=== PATIENT | female | born 1965 | race Caucasian/White ===

== ENCOUNTER 2022-01-10 17:59 | Emergency (ER) | payer OTHER, SELFPAY ==
[2022-01-10 18:05] VITALS: BP 147/91
[2022-01-10 18:12] VITALS: BP 147/91; PULSE 74; TEMP 36.4; O2SAT 98; BMI 33.7
--- NOTE | 2022-01-10 18:23 | ED_ITS ---
HPI - General Adult General Time Seen by Provider: 18:23 Date Seen: 01/10/22 Chief complaint: Chest Pain Stated complaint: Chest Pressure Time Seen by Provider: 01/10/22 18:22 Source: patient and RN notes reviewed Mode of arrival: ambulatory Limitations: no limitations History of Present Illness HPI narrative: Patient is a 56-year-old female coming in accompanied by her with concern of chest tightness. She states that she has had some chest heaviness/tightness for about a week now. She is also been having spells of fast heart rate that are last seen minutes waking her up at night. She has not been evaluated for this. She did have COVID on December 21, states she really had mild symptoms, minimal respiratory symptoms. She has felt these fast heart rate spells before the COVID, has probably been going on for few months. No current fevers chills. Some shortness of breath at times. No abdominal symptoms. She does note that she has elevated cholesterol, not treated, no prior cardiac history however. She drinks 1 coffee an about 1 tea a day, no other caffeine sources. Very minimal alcohol. These tachycardic spells will actually awaken her from sleep. She has some mild snoring at times if sleeping on her back. Her dad had a heart attack sometime in his 50s, there are other relatives on his side of the family with heart disease. She states she is active and can walk without difficulty. Related Data Home Medications Medication Instructions Recorded Confirmed valacyclovir 500 mg tablet mg 01/10/22 zolpidem 5 mg tablet mg 01/10/22 Allergies Allergy/AdvReac Type Severity Reaction Status Date / Time erythromycin base Allergy Unknown Verified 01/10/22 18:17 Review of Systems Status of ROS: Reports: 10 or more systems reviewed and unremarkable except as noted in History and below PFSH PFSH Social History Smoking Status: Never smoker Do you use any of these nicotine containing products: None Second hand tobacco smoke exposure: No How often do you have a drink containing alcohol: 2-3 times a week How many standard drinks containing alcohol do you have on a typical day: 1 or 2 How often do you have six or more drinks on one occasion: Never AUDIT-C Alcohol total score: 3 Non-prescribed substance use: denies use Exam Narrative: Exam Narrative: Well in the room with patient, cardiac monitoring is reviewed and watched is only showing sinus rhythm. Const: Vital Signs, click to edit/add: Vital Signs - 24 hr 01/10/22 18:12 01/10/22 18:05 01/10/22 19:00 Temperature 97.5 F L Pulse Rate [Left P ulse Oximeter] 74 78 Respiratory Rate 13 Blood Pressure [Ri ght Upper Arm] 147/91 H 147/91 H 131/87 Pulse Oximetry 98 97 Oxygen Delivery Me thod Room Air Room Air 01/10/22 19:40 Temperature Pulse Rate [Left P ulse Oximeter] 73 Respiratory Rate 16 Blood Pressure [Ri ght Upper Arm] 128/84 Pulse Oximetry 98 Oxygen Delivery Me thod Room Air Documenting provider has reviewed patient's vital signs: yes Common normals: no apparent distress, oriented x3, no limitations, healthy appearing, alert and well nourished General appearance: cooperative, comfortable and well kempt Nutritional appearance: overweight HENMT: Common normals: normocephalic, head/scalp atraumatic, hearing grossly n ormal bilaterally, external nose normal, nasal mucous membranes and turbinates normal, moist oral mucous membranes, oropharynx normal, dentition normal and gingiva normal Head and scalp: normocephalic and atraumatic Nose: external nose normal and nasal mucous membranes and turbinates normal Eye: Common normals: PERRL, EOMs intact bilaterally, conjunctivae normal and no scleral icterus Conjunctiva: conjunctiva(e) normal Pupil: PERRL Neck & C-Spine: Common normals: full ROM, no lymphadenopathy, supple, no meningeal signs, no JVD and thyroid normal Thyroid: thyroid normal Lymph: Lymphatic: no lymphadenopathy noted Chest: Common normals: inspection of chest normal and palpation of chest normal Resp: Common normals: normal respiratory effort, no retractions, no use of accessory muscles and clear to auscultation bilaterally Auscultation: clear to auscultation bilaterally Cardio: Common normals: no JVD, regular rate, regular rhythm, S1 normal heart sound, S2 normal heart sound, no gallops, no clicks, no murmurs and no rub Rate: regular rate Rhythm: regular rhythm Heart sounds: S1 normal and S2 normal GI: Common normals: Normal to inspection, nondistended, normoactive bowel sounds present, soft to palpation, non-tender, no hepatosplenomegaly and no masses Palpation: soft and no hepatosplenomegaly Extremity: Common normals: normal to inspection, full ROM, normal capillary refill, no joint enlargement, no clubbing, cyanosis or edema, no calf tenderness and no pedal edema Neuro: Common normals: oriented x3, CN's II-XII intact bilaterally, moves all extremities, no focal motor deficits, no sensory deficits noted and gait normal Sensorium/orientation: alert Meningeal signs: no meningeal signs Speech: speech normal Psych: Appearance: well kempt Course Course Hospital Course: Her initial EKG has been done and is normal, will have her on cardiac monitoring and pulse oximetry. Given the duration and constancy of her symptoms, single troponin will only be necessary. Will do other appropriate labs including a D- dimer. I have reviewed the rationale behind a D-dimer. If this is elevated she understands she will need chest CT PE protocol to rule out pulmonary emboli. Otherwise we will start with a baseline portable chest x-ray. She certainly sounds as if she is having tachycardic spells, they understand if we do not capture them here that she certainly will need to have further outpatient workup including event monitor/echo. Consideration for sleep apnea should be discussed with her primary as well. Right now she is hemodynamically stable, in sinus rhythm. She will be monitored while here and we will see if we have anything to add her her evaluation tonight. Reevaluation(s) Reevaluation #1: Reviewed with patient and her the normal findings of the labs and her chest x-ray. Her thyroid is pending and should there be any abnormality with that we will contact her. I will not contact her with normal findings. She is fine with that plan. I am not going to make her wait another hour for this result. She understands she does need to follow up in clinic. Should she have prolonged tachycardia at home that is going beyond a few minutes, she certainly is advised to try to come to the ER to capture this arrhythmia. Right now she is stable to discharge to home for further outpatient evaluation. Time: 20:01 Vital Signs Vital signs: Initial Vital Signs Blood Pressure 147/91 H 01/10/22 18:05 Blood Pressure Mean 109 01/10/22 18:05 Blood Pressure Position Supine 01/10/22 18:05 Vital Signs Blood Pressure 147/91 H 01/10/22 18:05 Temperature 97.5 F L 01/10/22 18:12 Pulse Rate 73 01/10/22 19:40 Respiratory Rate 16 01/10/22 19:40 Blood Pressure 128/84 01/10/22 19:40 Pulse Oximetry 98 01/10/22 19:40 Oxygen Delivery Method 01/10/22 19:40 Medical Decision Making Lab Data Lab results reviewed: Yes I reviewed the patient's lab results Labs: Lab Results 01/10/22 01/10/22 01/10/22 Range/Units 18:25 18:25 18:25 WBC 5.99 (4.50-11.00) K/uL RBC 4.58 (4.00-5.20) m/uL Hgb 13.0 (12.0-16.0) gm/dL Hct 39.3 (33.0-51.0) % MCV 86 (80-100) fL MCH 28 (26-34) pg MCHC 33 (32-36) gm/dL RDW Coeff of Sukhwinder 13.1 (11.5-15.5) % Plt Count 270 (140-440) K/uL Neut % (Auto) 61.7 (42.0-72.0) % Lymph % (Auto) 28.9 (20-44) % [place] % (Auto) 7.5 (0.0-11.0) % Eos % (Auto) 1.5 (0.0-7.0) % Baso % (Auto) 0.2 (0.0-3.0) % Neut # (Auto) 3.70 (1.7-7.0) K/uL Lymph # (Auto) 1.73 (0.90-2.90) K/uL [place] # (Auto) 0.40 (0.00-0.90) K/UL Eos # (Auto) 0.09 (0.00-0.50) K/uL Baso # (Auto) 0.01 (0.00-0.30) K/uL Abs Immat Gran (auto) 0.01 (0.00-0.30) K/uL ESR 13 (2-20) mm/hr D-Dimer Quant (PE/DVT) 0.35 (0.00-0.50) ug/ml Sodium (135-149) mmol/L Potassium (3.6-5.1) mmol/L Chloride (96-114) mmol/L Carbon Dioxide (20-32) mmol/L BUN (7-30) mg/dL Creatinine (0.5-1.5) mg/dL Estimated Creat Clear Estimated GFR ml/min Glucose (60-115) mg/dL Calcium (8.4-10.6) mg/dL Magnesium (1.5-2.6) mg/dL Total Bilirubin (0.1-1.5) mg/dL AST (12-35) U/L ALT (4-35) U/L Alkaline Phosphatase (40-150) U/L C-Reactive Protein (0.5-1.0) mg/dL NT-Pro-B Natriuret Pep (0-125) PG/mL Total Protein (6.0-8.3) g/dL Albumin (3.3-5.0) g/dL TSH (0.270-4.200) uIU/mL POC Troponin I (0.01-0.04) ng/ml 01/10/22 01/10/22 01/10/22 Range/Units 18:25 18:25 18:25 WBC (4.50-11.00) K/uL RBC (4.00-5.20) m/uL Hgb (12.0-16.0) gm/dL Hct (33.0-51.0) % MCV (80-100) fL MCH (26-34) pg MCHC (32-36) gm/dL RDW Coeff of Sukhwinder (11.5-15.5) % Plt Count (140-440) K/uL Neut % (Auto) (42.0-72.0) % Lymph % (Auto) (20-44) % [place] % (Auto) (0.0-11.0) % Eos % (Auto) (0.0-7.0) % Baso % (Auto) (0.0-3.0) % Neut # (Auto) (1.7-7.0) K/uL Lymph # (Auto) (0.90-2.90) K/uL [place] # (Auto) (0.00-0.90) K/UL Eos # (Auto) (0.00-0.50) K/uL Baso # (Auto) (0.00-0.30) K/uL Abs Immat Gran (auto) (0.00-0.30) K/uL ESR (2-20) mm/hr D-Dimer Quant (PE/DVT) (0.00-0.50) ug/ml Sodium 140 (135-149) mmol/L Potassium 3.8 (3.6-5.1) mmol/L Chloride 103 (96-114) mmol/L Carbon Dioxide 28 (20-32) mmol/L BUN 13 (7-30) mg/dL Creatinine 0.7 (0.5-1.5) mg/dL Estimated Creat Clear 75.12 Estimated GFR 102 ml/min Glucose 138 H (60-115) mg/dL Calcium 9.4 (8.4-10.6) mg/dL Magnesium 2.1 (1.5-2.6) mg/dL Total Bilirubin 0.4 (0.1-1.5) mg/dL AST 28 (12-35) U/L ALT 28 (4-35) U/L Alkaline Phosphatase 126 (40-150) U/L C-Reactive Protein 0.8 (0.5-1.0) mg/dL NT-Pro-B Natriuret Pep 46 (0-125) PG/mL Total Protein 7.5 (6.0-8.3) g/dL Albumin 4.5 (3.3-5.0) g/dL TSH 2.640 (0.270-4.200) uIU/mL POC Troponin I 0.00 L (0.01-0.04) ng/ml Imaging Data Chest x-ray: Attestation: I have reviewed the pertinent imaging results. My impression: My preliminary review of her portable chest x-ray is without acute cardiopulmonary change, await Radiology over-read. Radiologist's impression: Patient: GODFREY MIBUS Facility:?[facility] Patient ID:?[id number] Site Patient ID:?[id number]. Site :?[id number] Study:?XRay Chest PORTABLE-01/10/2022 7:02:42 PM Ordering Physician:?Hawa Alexander Final Report: INDICATION: Chest pain. TECHNIQUE: Chest 1 view. COMPARISON: None. FINDINGS: Cardiovascular and mediastinum: Heart size and vasculature are normal in caliber and appearance. Lungs and pleural spaces: Lungs are clear. No sign of infiltrate or mass. No sign of pleural effusion. No pneumothorax. Bones and soft tissues: No significant findings. IMPRESSION: Unremarkable chest. Dictated by Dada Wu MD @ 01/10/2022 7:26:49 PM (Electronic Signature) ECG Data Attestation: I personally reviewed and interpreted this ECG as follows: (Sinus rhythm, 74 beats per minute, no arrhythmia, no ischemia, QT corrected normal at 439 milliseconds) Prior ECG tracings: not available for review Critical Care Time Critical Care Time Critical Care Time: No Discharge Plan Discharge Clinical Impression: Tachycardia, Chest pressure Condition: Stable Instructions: Chest Pain (ED), Noncardiac Chest Pain (ED), Tachycardia (ED) Additional Instructions: Need to follow-up with your primary care provider ELIF. Need to discuss having a integrated circuit layout designer such as a ZIO patch put on, consider ECHO and discussion of sleep study. If you have any sustained tachycardia, is hours recommended that you return to the ED so that we can try to figure out what this is and treat if it is sustained. If you have new or progressive symptoms, further concerns, please seek re-evaluation. Activity Level: Activity as Tolerated Prescriptions: No Action valacyclovir 500 mg tablet zolpidem 5 mg tablet Stand Alone Forms: [place] Info Instructions
--- NOTE | 2022-01-10 18:40 | CRLHL7_ITS ---
For Patients: As a result of the Century Cures Act, medical imaging exams and procedure reports are released immediately into your electronic medical record. You may view this report before your referring provider. If you have questions, please contact your health care provider. INDICATION: Chest pain. TECHNIQUE: Chest 1 view. COMPARISON: None. FINDINGS: Cardiovascular and mediastinum: Heart size and vasculature are normal in caliber and appearance. Lungs and pleural spaces: Lungs are clear. No sign of infiltrate or mass. No sign of pleural effusion. No pneumothorax. Bones and soft tissues: No significant findings. IMPRESSION: Unremarkable chest. Dictated by Dada Wu MD @ 01/10/2022 7:26:49 PM (Electronically Signed)
[2022-01-10 19:00] VITALS: BP 131/87; PULSE 78; RESP 13; O2SAT 97
[2022-01-10 19:06] LABS: Basophils Absolute Auto 0.01 K/uL (0.00-0.30); Basophils Percent Auto 0.2 % (0.0-3.0); Eosinophils Absolute Auto 0.09 K/uL (0.00-0.50); Eosinophils Percent Auto 1.5 % (0.0-7.0); Hematocrit 39.3 % (33.0-51.0); Immature Granulocytes Abs Auto 0.01 K/uL (0.00-0.30); Lymphocytes Absolute Auto 1.73 K/uL (0.90-2.90); Lymphocytes Percent Auto 28.9 % (20-44); Mean Corpuscular HGB Conc 33 gm/dL (32-36); Mean Corpuscular Hemoglobin 28 pg (26-34); Mean Corpuscular Volume 86 fL (80-100); Monocytes Percent Auto 7.5 % (0.0-11.0); Neutrophils Percent Auto 61.7 % (42.0-72.0); Platelet Count* 270 K/uL (140-440); RDW Coefficient of Variation % 13.1 % (11.5-15.5); Red Blood Count 4.58 m/uL (4.00-5.20); White Blood Count* 5.99 K/uL (4.50-11.00)
[2022-01-10 19:07] LABS: Albumin* 4.5 g/dL (3.3-5.0); Chloride* 103 mmol/L (96-114); Slide Review Reflex No
[2022-01-10 19:08] LABS: Potassium* 3.8 mmol/L (3.6-5.1); Sodium* 140 mmol/L (135-149)
[2022-01-10 19:10] LABS: Creatinine* 0.7 mg/dL (0.5-1.5); Est. Creatinine Clearance* 75.12; Estimated Glomerular Filt Rate 102 ml/min
[2022-01-10 19:11] LABS: Alanine Aminotransferase* 28 U/L (4-35); Alkaline Phosphatase* 126 U/L (40-150); Aspartate Amino Transferase* 28 U/L (12-35); Bilirubin Total* 0.4 mg/dL (0.1-1.5); Blood Urea Nitrogen* 13 mg/dL (7-30); Calcium* 9.4 mg/dL (8.4-10.6); Carbon Dioxide* 28 mmol/L (20-32); Glucose* 138 mg/dL (60-115); Magnesium* 2.1 mg/dL (1.5-2.6); Total Protein* 7.5 g/dL (6.0-8.3)
[2022-01-10 19:14] LABS: C Reactive Protein* 0.8 mg/dL (0.5-1.0)
[2022-01-10 19:20] LABS: NT Pro B Type NatriureticPept* 46 PG/mL (0-125)
[2022-01-10 19:22] LABS: D Dimer Quantitative* 0.35 ug/ml (0.00-0.50)
[2022-01-10 19:40] VITALS: BP 128/84; PULSE 73; RESP 16; O2SAT 98
[2022-01-10 19:40] LABS: Erythrocyte SedimentationRate* 13 mm/hr (2-20)
[2022-01-10 20:10] VITALS: BP 134/88; PULSE 71; RESP 24; O2SAT 99
[2022-01-10 20:36] VITALS: BP 134/88; PULSE 71; RESP 22
== END 2022-01-10 20:37 | disposition home or self-care (01) ==
PROVIDERS: Emergency Provider Family Medicine
DX: R00.0 Tachycardia, unspecified (principal); R07.89 Other chest pain
CPT/HCPCS: 36415; 71045; 80053; 83735; 83880; 84443; 84484; 85025; 85379; 85651; 86140; 93005; 99284; 99285

== ENCOUNTER 2023-03-05 14:15 | Outpatient (RCR) | payer OTHER, SELFPAY | END 2023-06-01 09:56 | disposition home or self-care (01) | PROVIDERS: Visit Provider Family Medicine | DX: M54.2 Cervicalgia (principal); R22.1 Localized swelling, mass and lump, neck; Z51.89 Encounter for other specified aftercare | CPT/HCPCS: 97110; 97140; 97161; 97530 ==

== ENCOUNTER 2024-06-04 09:18 | Outpatient (CLI) | payer OTHER, SELFPAY ==
--- NOTE | 2024-06-04 09:15 | CRLHL7_ITS ---
For Patients: As a result of the Century Cures Act, medical imaging exams and procedure reports are released immediately into your electronic medical record. You may view this report before your referring provider. If you have questions, please contact your health care provider. BILATERAL SCREENING MAMMOGRAM WITH COMPUTER-AIDED DETECTION AND TOMOSYNTHESIS TECHNIQUE: CC and MLO views were obtained. These mammographic images have been obtained using full-field digital technique. These mammographic images were interpreted with the benefit of computer-aided detection. Breast Tomosynthesis was used in this interpretation. COMPARISON FILM: 10/05/22, 09/21/21, 06/11/18. FINDINGS: This is first mammogram since reduction. There are scattered areas of fibroglandular density. IMPRESSION: There is no radiographic evidence for malignancy. ASSESSMENT: BI-RADS Category 1: Negative RECOMMENDATION: Routine screening mammogram in 1 year. A lay language report of this examination will be provided to the patient. Nito Razo M.D. Diagnostic Radiologist [email or web address] SP/Dictated by: Nito Razo MD @ 06/04/2024 9:46:00 AM (Electronically Signed)
== END 2024-06-04 09:19 | disposition home or self-care (01) ==
LOC: MAMMO 09:19
PROVIDERS: Visit Provider Obstetrics & Gynecology
DX: Z12.31 Encounter for screening mammogram for malignant neoplasm of breast (principal)
CPT/HCPCS: 77063; 77067